=== PATIENT | female | born 1955 | race Hispanic/Latino ===

== ENCOUNTER 2016-10-31 12:52 | Emergency (ER) | payer MEDICARE ==
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
[2016-10-31 14:07] LABS: BASO % 0.4 % (0.0-2.0); EOS # 0.1 K/uL (0.0-0.7); EOS % 0.7 % (0.0-4.0); HEMATOCRIT 37.4 % (34.0-47.0); LYMPH # 1.3 K/uL (1.0-4.3); MEAN CELL VOLUME 94.6 fL (81.0-99.0); MEAN CORPUSCULAR HEMOGLOBIN 32.8 pg (27.0-31.0); MEAN CORPUSCULAR HGB CONC 34.6 g/dL (33.0-37.0); MEAN PLATELET VOLUME 9.9 fL (7.2-11.7); MONO # 0.6 K/uL (0.0-0.8); MONO % 7.5 % (0.0-10.0); RED CELL DISTRIBUTION WIDTH 13.5 % (11.5-14.5); WHITE BLOOD COUNT 7.4 K/uL (4.8-10.8)
[2016-10-31 14:19] LABS: CHLORIDE 103 mmol/L (98-107)
[2016-10-31 14:20] LABS: POTASSIUM 4.1 mmol/L (3.6-5.2); SODIUM 139 mmol/L (132-148)
--- NOTE | 2016-10-31 14:21 | RAD ---
HISTORY: adm COMPARISON: No prior. FINDINGS: LUNGS: No active pulmonary disease. PLEURA: No significant pleural effusion identified, no pneumothorax apparent. CARDIOVASCULAR: Normal. OSSEOUS STRUCTURES: No significant abnormalities. VISUALIZED UPPER ABDOMEN: Normal. OTHER FINDINGS: None. IMPRESSION: No active disease.
[2016-10-31 14:22] LABS: RBC URINE < 1 /hpf (0-3); URINE BILIRUBIN NEGATIVE (NEGATIVE); URINE BLOOD NEGATIVE (NEGATIVE); URINE COLOR Straw (YELLOW); URINE GLUCOSE (UA) NORMAL (Normal); URINE KETONE NEGATIVE (NEGATIVE); URINE LEUKOCYTE ESTERASE NEG Leu/uL (Negative); URINE PROTEIN NEGATIVE (NEGATIVE); URINE UROBILINOGEN NORMAL mg/dL (0.2-1.0); WBC URINE < 1 /hpf (0-5)
[2016-10-31 14:22] LABS: ALB/GLOB RATIO 1.3 (1.0-2.1); AST/SGOT 25 U/L (14-36); BILIRUBIN,TOTAL 0.6 mg/dL (0.2-1.3); CARBON DIOXIDE 23 mmol/L (22-30); CHOLESTEROL 288 mg/dL (0-199); GFR AFRICAN-AMERICAN > 60; TOTAL PROTEIN 6.9 g/dL (6.3-8.3)
[2016-10-31 14:23] LABS: ALKALINE PHOSPHATASE 53 U/L (38-126); ALT/SGPT 33 U/L (9-52); BLOOD UREA NITROGEN 15 mg/dL (7-17); GLUCOSE,RANDOM 78 mg/dL (65-105)
[2016-10-31] MEDS ORDERED: Aspirin 325 mg EC Tablets PO STA (14:46)
[2016-10-31] MEDS ORDERED: Aspirin 325 mg EC Tablets PO ONE (15:14)
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
[2016-10-31 16:10] VITALS: BP 125/76; PULSE 71; RESP 16; TEMP 98.6
[2016-10-31 16:17] VITALS: O2SAT 96
--- NOTE | 2016-11-03 16:33 | CARD ---
APPROVED REPORT EKG Measurement Heart [id number] <Conclusion> Normal sinus rhythm Normal ECG
== END 2016-10-31 16:40 | disposition left against medical advice (07) ==
LOC: C.ER 12:52 → UNDOADMIN 14:47 → C.9E 14:47
DX: R53.1 Weakness (principal); G89.29 Other chronic pain
CPT/HCPCS: 70450; 71010; 80053; 80061; 81001; 83036; 84484; 85025; 85610; 85730; 99285; G0480